=== PATIENT | male | born 1950 | race Caucasian/White ===

== ENCOUNTER 2020-09-09 15:08 | Observation (INO) | payer OTHER, MEDICARE ==
[2020-09-09] MEDS ORDERED: MAGNES/ALUMIN/SIMET 30ML UCUP ONE (15:34)
[2020-09-09] MEDS ORDERED: LIDOCAINE VISCOUS 2% SOLN 15 ML UDC ONE (15:35)
[2020-09-09 15:51] LABS: ALT/SGPT 96 U/L (12-78); AST/SGOT 132 U/L (15-37); Albumin 3.8 g/dL (3.4-5.0); Alkaline Phosphatase 76 U/L (45-117); BUN Blood Urea Nitrogen 19 mg/dL (7-18); Bicarbonate 25 mmol/L (21-32); Bilirubin Direct 0.3 mg/dL (0-0.2); Bilirubin Total 0.7 mg/dL (0.2-1.0); Glucose Level 113 mg/dL (74-106); NT PRO-BNP 33 pg/mL (<125); Potassium 3.8 mmol/L (3.5-5.1); Protein, Total 7.1 g/dL (6.4-8.2); Sodium Level 139 mmol/L (136-145); Troponin (Emerg Dept Use Only) < 0.02 ng/mL (0.0-0.045)
[2020-09-09 15:54] LABS: Protime INR 0.92
[2020-09-09 15:55] LABS: Absolute Lymphocytes (CBC) 1.7 K/uL (0.7-4.9); Basophils % 0.5 % (0-1.3); Hematocrit 43.9 % (39.6-49.0); MPV 8.2 fL (7.6-11.3); RBC Red Blood Cell Count 4.62 M/uL (4.33-5.43)
--- NOTE | 2020-09-09 16:35 | ER ---
Nurse's Notes [facility] Name: Renny Cross Age: 70 yrs Sex: Male : 1950 Arrival Date: 09/09/2020 Time: 15:09 Bed 18 Private MD: Diagnosis: Chest pain, unspecified Presentation: 09/09 15:11 Chief complaint: Patient states: chest pressure, abd burning and bloating with nausea ss that began 20 minutes ago. Pt reports that he self administered 2 Padma seltzer tablets and 3 325 mg aspirin tablets and states that he is starting to feel better after that. Coronavirus screen: Client denies travel out of the [place] in the last 14 days. Ebola Screen: Patient denies exposure to infectious person. Patient denies travel to an Ebola-affected area in the 21 days before illness onset. Initial Sepsis Screen: Does the patient meet any 2 criteria? No. Patient's initial sepsis screen is negative. Does the patient have a suspected source of infection? No. Patient's initial sepsis screen is negative. Risk Assessment: Do you want to hurt yourself or someone else? Patient reports no desire to harm self or others. Onset of symptoms was September 09, 2020. 15:11 Method Of Arrival: Ambulatory ss 15:11 Acuity: POONAM 2 ss Historical: - Allergies: 15:18 No Known Allergies; ss - PMHx: 15:18 GERD; Hypertension; ss - PSHx: 15:18 Cholecystectomy; Appendectomy; ss - Immunization history:: Adult Immunizations up to date. - Social history:: Smoking status: Patient denies any tobacco usage or history of. Smoking status: Patient/guardian denies using alcohol, street drugs, The patient lives with family. - Family history:: not pertinent. Screenin:30 Abuse screen: Denies threats or abuse. Denies injuries from another. Nutritional hb screening: No deficits noted. Tuberculosis screening: No symptoms or risk factors identified. Fall Risk None identified. Assessment: 15:15 General: Appears in no apparent distress. Behavior is calm, cooperative. Pain: hb Complains of pain in chest Pain does not radiate. Pain currently is 3 out of 10 on a pain scale. at worst was 9 out of 10 on a pain scale. Pain began suddenly, 1 hour ago. Neuro: Level of Consciousness is awake, alert, obeys commands, Oriented to person, place, time, situation. Cardiovascular: Reports chest pain, nausea, shortness of breath, Capillary refill < 3 seconds Patient's skin is warm and dry. Respiratory: Respiratory effort is even, unlabored, Respiratory pattern is regular, symmetrical. GI: No signs and/or symptoms were reported involving the gastrointestinal system. : No signs and/or symptoms were reported regarding the genitourinary system. EENT: No signs and/or symptoms were reported regarding the EENT system. Derm: Skin is pink, warm \T\ dry. Musculoskeletal: No signs and/or symptoms reported regarding the musculoskeletal system. 16:05 Reassessment: Patient appears in no apparent distress at this time. Patient and/or hb family updated on plan of care and expected duration. Pain level reassessed. Patient is alert, oriented x 3, equal unlabored respirations, skin warm/dry/pink. 17:00 Reassessment: Patient appears in no apparent distress at this time. Patient and/or hb family updated on plan of care and expected duration. Pain level reassessed. Patient is alert, oriented x 3, equal unlabored respirations, skin warm/dry/pink. 17:52 Reassessment: Attempted to call report to floor, receiving nurse unavailable at this hb time. 18:04 Reassessment: Patient appears in no apparent distress at this time. Patient and/or hb family updated on plan of care and expected duration. Pain level reassessed. Patient is alert, oriented x 3, equal unlabored respirations, skin warm/dry/pink. Vital Signs: 08:00 BP 135 / 73; Pulse 58; Resp 17; Pulse Ox 96% on R/A; Pain 0/10; hb 15:11 BP 162 / 86; Pulse 57; Resp 17; Temp 98.4(TE); Pulse Ox 99% on R/A; Weight 103.42 kg; ss Height 6 ft. 3 in. (190.50 cm); Pain 3/10; 16:05 BP 128 / 66; Pulse 60; Resp 16; Pulse Ox 99% on R/A; hb 17:10 BP 142 / 82; Pulse 60; Resp 16; Pulse Ox 97% on R/A; hb 15:11 Body Mass Index 28.50 (103.42 kg, 190.50 cm) ED Course: 15:09 Patient arrived in ED. hb 15:10 Cisco Perez MD is Attending Physician. ma2 15:10 EKG done, by ED staff, reviewed by Cisco Perez MD. jp3 15:16 Triage completed. ss 15:16 Patient has correct armband on for positive identification. Bed in low position. Call hb light in reach. Side rails up X 1. environmental monitoring technician on. Pulse ox on. NIBP on. 15:16 Patient maintains SpO2 saturation greater than 95% on room air. hb 15:17 Inserted saline lock: 20 gauge in right antecubital area, using aseptic technique. hb Blood collected. 15:18 Adriana Lassiter, RN is Primary Nurse. hb 15:18 Arm band placed on right wrist. ss 15:44 XRAY Chest (1 view) In Process Unspecified. EDMS 16:35 Kit Teixeira MD is Hospitalizing Provider. ma2 17:15 Hospitalizing Provider role handed off by Kit Teixeira MD ma2 17:15 Song Almonte MD is Hospitalizing Provider. ma2 18:20 No provider procedures requiring assistance completed. Patient admitted, IV remains in hb place. Administered Medications: 15:32 Drug: GI Cocktail without - (Maalox Suspension 30 ml, Lidocaine Liquid 2 % 15 hb ml) Route: PO; 16:15 Follow up: Response: No adverse reaction hb Outcome: 16:35 Decision to Hospitalize by Provider. ma2 18:20 Admitted to Tele accompanied by tech, family with patient, via wheelchair, room 216, hb with chart, Report called to JOSE F NORMAN 18:20 Condition: stable 18:20 Instructed on the need for admit, Demonstrated understanding of instructions. 18:52 Patient left the ED. hb Signatures: Dispatcher [employer] EDMS Torie Peters RN RN Adriana Lassiter, ESTER RN Cisco Perez MD MD ma2 Luis Rhoades jp3
--- NOTE | 2020-09-09 16:35 | EDPHYS ---
Physician Documentation [facility] Name: Renny Cross Age: 70 yrs Sex: Male : 1950 Arrival Date: 09/09/2020 Time: 15:09 Bed 18 Private MD: ED Physician Cisco Perez HPI: 09/09 16:33 This 70 yrs old Male presents to ER via Ambulatory with complaints of Chest ma2 Pain. 16:33 The patient or guardian reports chest pain that is located primarily in the substernal ma2 area. Onset: gradually, 1 day(s) ago. The chest pain is described as a heaviness, a pressure. Severity of pain: At its worst the pain was moderate in the emergency department the pain has resolved. The patient has experienced a previous episode. patient took 3 aspirin 160 mg each after pain started. Historical: - Allergies: 15:18 No Known Allergies; ss - PMHx: 15:18 GERD; Hypertension; ss - PSHx: 15:18 Cholecystectomy; Appendectomy; ss - Immunization history:: Adult Immunizations up to date. - Social history:: Smoking status: Patient denies any tobacco usage or history of. Smoking status: Patient/guardian denies using alcohol, street drugs, The patient lives with family. - Family history:: not pertinent. ROS: 16:33 Constitutional: Negative for fever, chills, and weight loss. ma2 16:33 All other systems are negative. Exam: 16:33 Constitutional: This is a well developed, well nourished patient who is awake, alert, ma2 and in no acute distress. ENT: Nares patent. No nasal discharge, no septal abnormalities noted. Tympanic membranes are normal and external auditory canals are clear. Oropharynx with no redness, swelling, or masses, exudates, or evidence of obstruction, uvula midline. Mucous membranes moist. Neck: Trachea midline, no thyromegaly or masses palpated, and no cervical lymphadenopathy. Supple, full range of motion without nuchal rigidity, or vertebral point tenderness. No Meningismus. Chest/axilla: Normal chest wall appearance and motion. Nontender with no deformity. No lesions are appreciated. Cardiovascular: Regular rate and rhythm with a normal S1 and S2. No gallops, murmurs, or rubs. Normal PMI, no JVD. No pulse deficits. Respiratory: Lungs have equal breath sounds bilaterally, clear to auscultation and percussion. No rales, rhonchi or wheezes noted. No increased work of breathing, no retractions or nasal flaring. Abdomen/GI: Soft, non-tender, with normal bowel sounds. No distension or tympany. No guarding or rebound. No evidence of tenderness throughout. Back: No spinal tenderness. No costovertebral tenderness. Full range of motion. MS/ Extremity: Pulses equal, no cyanosis. Neurovascular intact. Full, normal range of motion. Neuro: Awake and alert, GCS 15, oriented to person, place, time, and situation. Cranial nerves II-XII grossly intact. Motor strength 5/5 in all extremities. Sensory grossly intact. Cerebellar exam normal. Normal gait. Vital Signs: 08:00 BP 135 / 73; Pulse 58; Resp 17; Pulse Ox 96% on R/A; Pain 0/10; hb 15:11 BP 162 / 86; Pulse 57; Resp 17; Temp 98.4(TE); Pulse Ox 99% on R/A; Weight 103.42 kg; ss Height 6 ft. 3 in. (190.50 cm); Pain 3/10; 16:05 BP 128 / 66; Pulse 60; Resp 16; Pulse Ox 99% on R/A; hb 17:10 BP 142 / 82; Pulse 60; Resp 16; Pulse Ox 97% on R/A; hb 15:11 Body Mass Index 28.50 (103.42 kg, 190.50 cm) ss MDM: 15:10 Patient medically screened. ma2 16:33 Differential diagnosis: gastroesophageal reflux disease (GERD), pericarditis, stable ma2 angina, unstable angina. HEART Score: History: Moderately Suspicious (1), ECG: Normal (0), Age: > or = 65 years (2), Risk Factors: 1 or 2 risk factors (1), Troponin: < or = 1 x Normal Limit (0), Total Score = 4. The patient was not given aspirin in the Emergency Department. Patient reports taking aspirin within the past 24 hours. The patient's pulmonary embolism risk score was calculated as follows: No Risks (0 Pts). Data reviewed: vital signs, nurses notes. Counseling: I had a detailed discussion with the patient and/or guardian regarding: the historical points, exam findings, and any diagnostic results supporting the discharge/admit diagnosis, the presence of at least one elevated blood pressure reading (>120/80) during this emergency department visit, the need for further work-up and treatment in the hospital. 09/09 15:10 Order name: Basic Metabolic Panel; Complete Time: 16:26 hb 09/09 15:10 Order name: CBC with Diff; Complete Time: 16:26 hb 09/09 15:10 Order name: LFT's; Complete Time: 16: hb 09/09 15:10 Order name: Magnesium; Complete Time: 16: hb 09/09 15:10 Order name: NT PRO-BNP; Complete Time: 16:26 hb 09/09 15:10 Order name: PT-INR; Complete Time: 16: hb 09/09 15:10 Order name: Troponin (emerg Dept Use Only); Complete Time: 16: hb 09/09 17:19 Order name: Basic Metabolic Panel EDSC 09/09 17:19 Order name: Basic Metabolic Panel EDSC 09/09 17:19 Order name: CBC with Automated Diff EDSC 09/09 17:19 Order name: CBC with Automated Diff EDSC 09/09 17:19 Order name: Troponin I EDSC 09/09 17:19 Order name: Troponin I EDSC 09/09 17:19 Order name: Troponin I EDSC 09/09 15:10 Order name: XRAY Chest (1 view) 09/09 15:10 Order name: EKG; Complete Time: 15:11 hb 09/09 15:10 Order name: Cardiac monitoring; Complete Time: 15:19 hb 09/09 15:10 Order name: EKG - Nurse/Tech; Complete Time: 15:20 hb 09/09 15:10 Order name: IV Saline Lock; Complete Time: 15:20 hb 09/09 15:10 Order name: Labs collected and sent; Complete Time: 15:20 hb 09/09 15:10 Order name: O2 Per Protocol; Complete Time: 15:20 hb 09/09 15:10 Order name: O2 Sat Monitoring; Complete Time: 15:20 hb 09/09 17:19 Order name: Regular EDSC 09/09 17:19 Order name: EKG Electrocardiogram EDSC 09/09 17:19 Order name: EKG Electrocardiogram EDSC 09/09 17:19 Order name: EKG Electrocardiogram EDSC 09/09 17:19 Order name: EKG Electrocardiogram EDMS Administered Medications: 15:32 Drug: GI Cocktail without - (Maalox Suspension 30 ml, Lidocaine Liquid 2 % 15 hb ml) Route: PO; 16:15 Follow up: Response: No adverse reaction hb Disposition: 09/09/20 16:35 Hospitalization ordered by Song Almonte for Observation. Preliminary diagnosis is Chest pain, unspecified. - Bed requested for Telemetry/MedSurg (observation). - Status is Observation. hb - Condition is Stable. - Problem is new. - Symptoms are unchanged. Signatures: Dispatcher [employer] EDMS Angely Carolina RN RN Torie Peters RN RN Adriana Lassiter RN RN hb Alzahri, Mohammad, MD MD in2 Corrections: (The following items were deleted from the chart) 17:15 16:35 Hospitalization Ordered by Kit Teixiera MD for Observation. Preliminary ma2 diagnosis is Chest pain, unspecified. Bed requested for Telemetry/MedSurg (observation). Status is Observation. Condition is Stable. Problem is new. Symptoms are unchanged. ma2 17:39 17:15 09/09/2020 16:35 Hospitalization Ordered by Song Almonte MD for Observation. kl Preliminary diagnosis is Chest pain, unspecified. Bed requested for Telemetry/MedSurg (observation). Status is Observation. Condition is Stable. Problem is new. Symptoms are unchanged. ma2 18:52 17:39 09/09/2020 16:35 Hospitalization Ordered by Song Almonte MD for Observation. hb Preliminary diagnosis is Chest pain, unspecified. Bed requested for Telemetry/MedSurg (observation). Status is Observation. Condition is Stable. Problem is new. Symptoms are unchanged. kl
--- NOTE | 2020-09-09 16:44 | RAD REPORT ---
EXAM DESCRIPTION: Adam Single View09/09/2020 3:45 pm CLINICAL HISTORY: Chest pain COMPARISON: 2014 FINDINGS: Areas scarring are present within the lung bases. Pleural calcifications are present. The lungs appear clear of acute infiltrate. The heart is normal size IMPRESSION: No acute abnormalities displayed
[2020-09-09 19:35] VITALS: BMI 28.5
--- NOTE | 2020-09-09 21:43 | HP ---
Date of Admission: 09/09/2020 Chief Complaint: Chest pain. History Of Present Illness: This is a 70-year-old pleasant male patient who was doing fine until today sometime after lunch at 3:30 p.m. or so, he started to have some stomach upset type of feeling and subsequently started to have chest tightness associated with some shortness of breath. He also had some nausea and felt a little dizzy. His hands were feeling clammy. With all these complaints, he decided to take 3 aspirins, and then he asked his girlfriend to bring him to the emergency room. After he came into emergency room, he was evaluated and was admitted to the hospital. When I saw him, he was in the emergency room asymptomatic. Allergies: NO KNOWN ALLERGIES. Medications: Aspirin 81 mg daily, losartan 100 mg p.o. daily, omeprazole 20 mg p.o. daily, simvastatin 20 mg p.o. daily in the evening, and Cialis 5 mg p.o. daily. Review of Systems: Cardiovascular: As mentioned above. All other systems reviewed and negative. Past Medical History: Significant for impaired fasting glucose, hypertension, hyperlipidemia, gastroesophageal reflux disease, diverticulosis, benign prostatic hypertrophy, erectile dysfunction, and gout. Past Surgical History: Cholecystectomy and appendectomy. Family History: Mother with history of hypertension and brother also has hypertension. Maternal grandfather colon cancer. Social History: Prior history of smoking, not at present time. Use of alcohol weekly. Physical Examination: VITAL SIGNS: Height 6 feet, 3 inches, weight 228 pounds, temperature 98.4, pulse 57, respiratory rate 17, blood pressure 162/86, oxygen saturation 99%. General: Awake, alert, oriented, not in distress. HEENT: Head atraumatic, normocephalic. Conjunctivae nonerythematous. Sclerae white. Mouth, no thrush or edema noted. Ears/Nose, no mass, lesion, discharge noted. Neck: Supple. No JVD, lymph nodes, bruit, thyromegaly noted. Lungs: Bilateral good equal air entry. Clear to auscultation. No rhonchi. No rales. Heart: Normal heart sounds, no murmur or gallop. Abdomen: Soft, bowel sounds normal. No guarding, rigidity, tenderness, mass, hepatosplenomegaly, distention, or bruit noted. Extremities: No leg edema. No calf tenderness. Skin: No rash, ulcer, cellulitis. Lymphatics: No lymph node enlargement in neck, supraclavicular, infraclavicular region. Neuro: No focal neurological deficit. Chest: Unremarkable. External Genitalia: Deferred. Rectal: Deferred. Diagnostic Studies: Labs: EKG; normal sinus rhythm, no acute ST-T changes. Chest x-ray; no acute cardiopulmonary changes. Sodium 139, potassium 3.8, chloride 106, bicarb 25, glucose 113, BUN 19, creatinine 0.76. White count 5.7, hemoglobin 14.8, platelets 219. Impression: 1. Chest pain. 2. Hypertension. 3. Hyperlipidemia. 4. Gastroesophageal reflux disease. 5. Impaired fasting glucose. 6. Benign prostatic hypertrophy. 7. Diverticulosis. Plan: Admit the patient to hospital for further evaluation and management of this problem. We will go ahead and get serial cardiac enzymes. Continue home medications per order. We will go ahead and get an echocardiogram and a stress test tomorrow morning. Details and plan of treatment discussed with the patient and I will see him in the morning for followup. EARLINE/MODL Voice ID: [id number] [email or web address]
[2020-09-10 04:48] LABS: Absolute Lymphocytes (CBC) 1.6 K/uL (0.7-4.9); Basophils % 0.6 % (0-1.3); Hematocrit 41.7 % (39.6-49.0); Lymphocytes % 33.7 % (15.3-44.8); MPV 8.1 fL (7.6-11.3); RBC Red Blood Cell Count 4.41 M/uL (4.33-5.43)
[2020-09-10 05:04] LABS: BUN Blood Urea Nitrogen 18 mg/dL (7-18); Bicarbonate 27 mmol/L (21-32); Glucose Level 111 mg/dL (74-106); HDL Cholesterol 53 mg/dL (40-60); LDL Cholesterol, Calculated 88 (<130); Sodium Level 143 mmol/L (136-145)
[2020-09-10] MEDS ORDERED: PANTOPRAZOLE 40MG TABLET PO SCH (06:30)
[2020-09-10] MEDS ORDERED: REGADENOSON 0.4 MG/5 ML SYR IV ONE (08:52)
[2020-09-10] MEDS ORDERED: ASPIRIN EC 81 MG TAB PO SCH (09:00)
[2020-09-10 09:21] VITALS: O2SAT 95
[2020-09-10 12:14] VITALS: BP 134/74; TEMP 97
--- NOTE | 2020-09-10 12:36 | RAD REPORT ---
EXAM DESCRIPTION: NM - Rest Stress Cardiac Imaging - 09/10/2020 12:30 pm CLINICAL HISTORY: Chest pain. COMPARISON: None. TECHNIQUE: The patient was administered 10.8 millicuries of Tc 99m Sestamibi prior to resting SPECT imaging of the heart. The patient was then administered approximately 30.4 mCi of Tc 99m Sestamibi fo llowing exercise or pharmacologic stress. Multiplanar SPECT images were reviewed. FINDINGS: There is uniformity of radiotracer uptake involving the entire left ventricular myocardiu m on rest and stress images. The left ventricular ejection fraction equals 54% IMPRESSION: Negative for a myocardial perfusion defect
--- NOTE | 2020-09-11 05:38 | DS ---
Date of Discharge: 09/10/2020 Disposition: Discharged to go home. Physical Examination: HEENT: Unremarkable. Lungs: Clear to auscultation. Heart: Sounds normal. Abdomen: Soft. Bowel sounds normal. No guarding, rigidity, tenderness, distention. Extremities: No leg edema. Skin: Evidence of rash on the left arm consistent with dermatitis. Laboratory Data: Yesterday white count 5.7, hemoglobin 14.8, platelets 219. Today white count 4.9, hemoglobin 14.3, platelets 183. Yesterday sodium 139, potassium 3.8, chloride 106, bicarb 25, BUN 19, creatinine 0.76, glucose 113. Liver function tests unremarkable except SGOT 132, SGPT 96. Troponin less than 0.02 x3. Total cholesterol 164, triglyceride 117, LDL 88, HDL 52. Hospital Course: A 70-year-old pleasant male patient admitted to the hospital with chest pain complaint. Please see dictated H and P for more information. After the patient was evaluated in the emergency room, was admitted to the hospital with these complaints of chest pain. AR was ruled out by getting serial cardiac enzymes. This morning, we ordered a stress test and echocardiogram. Echocardiogram done, result pending. Stress test came back negative for any stress-induced ischemia. The patient was discharged to go home in stable condition. He has not had any recurrence of chest pain after admission to the hospital. Discharge Diagnoses: 1. Chest pain. 2. Contact dermatitis, left arm. 3. Hypertension. 4. Hyperlipidemia. 5. Gastroesophageal reflux disease. 6. Impaired fasting glucose. 7. Benign prostatic hypertrophy. 8. Diverticulosis. Discharge Medications And Instructions: 1. Continue all prior home medications except stop omeprazole 20 mg p.o. daily and start omeprazole 40 mg p.o. daily and apply triamcinolone cream topically to the left arm for rash 2 times a day. 2. Follow up at my office on 09/16/2020. EARLINE/MODL Voice ID: [id number] Report ID: [id number] DERRICK
--- NOTE | 2020-09-11 08:18 | ECHO ---
HEIGHT: 6 ft 3 in WEIGHT: 228 lb 0.033 oz DATE OF STUDY: 09/10/[address]: Song Almonte MD 2-DIMENSIONAL: YES M.MODE: YES DOPPLER: YES COLOR FLOW: YES TDS: PORTABLE: DEFINITY: BUBBLE STUDY: DIAGNOSIS: CHEST PAIN CARDIAC HISTORY: CATHERIZATION: NO SURGERY: NO PROSTHETIC VALVE: NO PACEMAKER: NO MEASUREMENTS (cm) DIASTOLIC (NORMALS) SYSTOLIC (NORMALS) IVSd 1.0 (0.6-1.2) LA Diam 3.5 (1.9-4.0) LVEF 54% LVIDd 4.1 (3.5-5.7) LVIDs 3.0 (2.0-3.5) %FS 28% LVPWd 1.1 (0.6-1.2) Ao Diam 3.4 (2.0-3.7) 2 DIMENSIONAL ASSESSMENT: RIGHT ATRIUM: NORMAL LEFT ATRIUM: NORMAL RIGHT VENTRICLE: NORMAL LEFT VENTRICLE: NORMAL TRICUSPID VALVE: NORMAL MITRAL VALVE: NORMAL PULMONIC VALVE: NORMAL AORTIC VALVE: NORMAL PERICARDIAL EFFUSION: NONE AORTIC ROOT: NORMAL LEFT VENTRICULAR WALL MOTION: NORMAL DOPPLER/COLOR FLOW: NORMAL COMMENTS: NORMAL LEFT VENTRICULAR EJECTION FRACTION 55-60%. NORMAL WALL MOTION. NORMAL DIASTOLIC FUNCTION. TECHNOLOGIST: ZURI HAND
--- NOTE | 2020-09-11 08:41 | TREADPHA ---
DX: CHEST PAIN Date of Study: 09/10/2020 Ht: 6' 3 " Wt: 228 lb 0.033 oz Consulting Physician: YESI MEDICATIONS: ASPIRIN, PRILOSEC, LOSARTAN, SEMASTATIN, CIALIS HISTORY: HYPERTENSION, HIGH CHOLESTEROL, GERD. 70 YEAR OLD MALE PATIENT ADMITTED FOR CHEST PAIN. PHYSICIAL EXAMINATION: RESTING B.P.: RESTING H.R.: RESTING EKG: WITHIN NORMAL LIMITS PROTOCOL: PHARMACOLOGIC EXERCISE TIME: 3:30 B.P. AT [facility] STRESS: IMPRESSION: NO STRESS INDUCED ISCHEMIA.
== END 2020-09-10 14:15 | disposition home or self-care (01) ==
LOC: ER 15:08 → ERHOLD 17:30 → 2ND 18:20
PROVIDERS: ADMIT Internal Medicine; ATTEND Internal Medicine
DX: R07.9 Chest pain, unspecified (principal); Z20.828 Contact with and (suspected) exposure to other viral communicable diseases; L25.9 Unspecified contact dermatitis, unspecified cause; I10 Essential (primary) hypertension; E78.5 Hyperlipidemia, unspecified; K21.9 Gastro-esophageal reflux disease without esophagitis; R73.01 Impaired fasting glucose; N40.0 Benign prostatic hyperplasia without lower urinary tract symptoms; K57.90 Diverticulosis of intestine, part unspecified, without perforation or abscess without bleeding; Z79.82 Long term (current) use of aspirin; M10.9 Gout, unspecified; Z87.891 Personal history of nicotine dependence; R00.1 Bradycardia, unspecified
CPT/HCPCS: 93005; 93017; 93306; 85025 ×2; 80048 ×2; 36415; 83735; 85610; 80061; 80076; 84484 ×3; 83880; 80074; 71045; 78452; 99285; U0002; J2785; A9500; G0378 ×3